=== PATIENT | male | born 2000 | race Hispanic/Latino ===

== ENCOUNTER 2024-05-28 12:05 | Emergency (ER) | payer SELFPAY ==
[2024-05-28 15:40] LABS: #Basophils 0.05 10x3/uL (0.0-0.2); %Basophils 0.6 % (0.0-1.0); %Eosinophils 4.2 % (0.0-10.0); %Lymphocytes 26.3 % (21.0-51.0); %Neutrophils 62.5 % (42.0-75.0); Hematocrit 49.7 % (42.0-52.0); Hemoglobin 16.3 g/dL (14.0-18.0); Mean Corpuscular HGB CONC 32.8 g/dL (32.0-36.0); Mean Corpuscular Hemoglobin 28.9 pg (27.0-31.0); Mean Corpuscular Volume 88.1 fL (78.0-98.0); Mean Platelet Volume 9.7 fL (7.4-10.4); Platelet Count 258 10x3/uL (130-400); RBC Distribution Width 13.3 % (11.5-14.5); Red Blood Cell (RBC) Count 5.64 mill/uL (4.70-6.10)
[2024-05-28] MEDS ORDERED: Dexamethasone 10 MG/ML VIAL ONE (15:47)
[2024-05-28] MEDS ORDERED: Ketorolac Tromethamine 30 MG (1 mL) VIAL ONE (15:47)
[2024-05-28] MEDS ORDERED: Metoclopramide HCl 10 MG (2 mL) VIAL ONE (15:47)
[2024-05-28 15:54] LABS: ALT (SGPT) 99 U/L (8-55); AST (SGOT) 36 U/L (5-34); Albumin 4.1 g/dL (3.5-5.0); Alkaline Phosphatase 110 U/L (40-110); Anion Gap 13 mmol/L (10-20); BUN (Urea Nitrogen) 6 mg/dL (8.9-20.6); Bilirubin, Total 0.4 mg/dL (0.2-1.2); Calc. Creatinine Clearance 0 mL/min (70-130); Calcium 9.5 mg/dL (7.8-10.44); Carbon Dioxide 26 mmol/L (22-29); Chloride 106 mmol/L (98-107); Estimated GFR 127; Globulin 3.3 g/dL (2.4-3.5); Glucose 111 mg/dL (70-105); Protein, Total 7.4 g/dL (6.0-8.3); Sodium 141 mmol/L (136-145)
[2024-05-28 15:58] LABS: PTT 27.6 sec (22.9-36.1); Prothrombin Time 12.7 sec (12.0-14.7)
[2024-05-28] MEDS ORDERED: fentaNYL 50 mcg/mL 1 mL Vial ONE (16:03)
== END 2024-05-28 18:57 | disposition home or self-care (01) ==
LOC: ERS 12:05
DX: Q07.00 Arnold-Chiari syndrome without spina bifida or hydrocephalus (principal); F17.290 Nicotine dependence, other tobacco product, uncomplicated
CPT/HCPCS: 36415; 70450; 72141; 80053; 85025; 85610; 85730; 96374; 96375; J1100; J1885; J2765; J3010